=== PATIENT | male | born 1990 | race Caucasian/White ===

== ENCOUNTER 2018-03-13 23:32 | Observation (INO) ==
[2018-03-13] MEDS ORDERED: DIPH,PERTUSS,TET(ADACEL) VAC/PF 0.5 ML (Tdap) IM ONE (23:54)
[2018-03-13] MEDS ORDERED: LIDOCAINE HCL 2 % 10 ML JELLY URO-JECT TOPICAL PRN (23:54)
[2018-03-14] MEDS ORDERED: Lactated Ringers 1,000 ML PRIMARY IV ONE (00:02)
[2018-03-14] MEDS ORDERED: fentaNYL Inj 100 MCG/2 ML VIAL IVP ONE ×2 (00:02→01:00)
[2018-03-14 00:05] LABS: BASOPHILS # (AUTO) 0.04 10*3/UL; BASOPHILS % (AUTO) 0.3 % (0-1); EOSINOPHILS # (AUTO) 0.13 10*3/UL; Hematocrit [HCT] 47.4 % (42.0-52.0); Hemoglobin [HGB] 16.6 g/dL (14.0-18.0); MEAN CORPUSCULAR HEMOGLOBIN 30.9 PG (27-31); MEAN CORPUSCULAR VOLUME 88.1 FL (80-90); MEAN PLATELET VOLUME 10.3 FL (7.4-12.2); MONOCYTES # (AUTO) 1.12 10*3/UL (0.3-0.8); MONOCYTES % (AUTO) 8.7 % (5-15); NEUTROPHILS # (AUTO) 8.73 10*3/UL; PLATELET MORPHOLOGY COMMENT NORMAL MORPHOLOGY (NORM); RBC MORPHOLOGY COMMENT NORMAL MORPHOLOGY (NORM); RED BLOOD COUNT 5.38 10^6/uL (4.70-6.10); WBC MORPHOLOGY COMMENT NORMAL MORPHOLOGY (NORM)
[2018-03-14 00:12] LABS: BLOOD UREA NITROGEN 12 mg/dL (7-22); BUN/CREATININE RATIO 13.33 (6-20); SERUM ALBUMIN 5.2 g/dL (3.5-4.8)
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
[2018-03-14] MEDS ORDERED: oxyCODONE/APAP 10/325 Tab 1 EACH TAB PO ONE (01:48)
[2018-03-14] MEDS ORDERED: Ondansetron ODT Tab 4 MG TAB PO PRN (02:42)
[2018-03-14] MEDS ORDERED: LIDOCAINE W/ SODIUM BICARB 0.5 ML SYR SUBD PRN (02:42)
[2018-03-14] MEDS ORDERED: DOCUSATE 100 MG CAPSULE PO PRN (02:42)
[2018-03-14] MEDS ORDERED: CALCIUM CARBONATE 500 MG (TUMS) CHEWABLE TABLET PO PRN (02:42)
[2018-03-14] MEDS ORDERED: HYDROcodone-APAP 7.5 MG-325 MG TABLET PO PRN (02:42)
[2018-03-14] MEDS: KETOROLAC 15 MG/1 ML VIAL IVP PRN ×2 (02:52→14:37)
[2018-03-14 07:25] LABS: BILIRUBIN,URINE NEGATIVE (NEG); CLARITY,URINE CLEAR (CLEAR); COLOR,URINE YELLOW (Y); GLUCOSE, URINE (UA) NEGATIVE (NEG); OCCULT BLOOD,URINE NEGATIVE (NEG); PROTEIN,URINE NEGATIVE (NEG); UROBILINOGEN,URINE 0.2 EU/dL (0.2)
[2018-03-14 07:26] LABS: URINE SAMPLE TYPE CLEAN CATCH URINE
[2018-03-14 07:35] LABS: URINE SAMPLE TYPE CLEAN CATCH URINE
[2018-03-14 07:36] LABS: AMPHETAMINE SCREEN NEGATIVE (NEG); CANNABINOID SCREEN,URINE POSITIVE (NEG); COCAINE SCREEN NEGATIVE (NEG); METHADONE URINE SCREEN NEGATIVE (NEG); METHAMPHETAMINES SCREEN,URINE NEGATIVE (NEG); OPIATE SCREEN,URINE NEGATIVE (NEG)
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
--- NOTE | 2018-03-14 15:26 | PT PM DAY ---
Diagnosis : Compression Fracture PM - Physical Therapy O: The patient was fit with and issued an [facility] TLSO back brace and instructed in its proper use and care. P: No further therapy is indicated at this time. MTDD
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
[2018-03-22 17:18] VITALS: BP 123/100; RESP 18; TEMP 97.1; O2SAT 96
== END 2018-03-14 14:52 | disposition home or self-care (01) ==
LOC: ER 23:32 → MED/SURG 23:32
PROVIDERS: ADMIT Surgery; ATTEND Surgery